=== PATIENT | male | born 1990 | race Caucasian/White ===

== ENCOUNTER 2017-12-11 17:35 | Emergency (ER) | payer MEDICAID ==
[2017-12-11] MEDS: ACETAMINOPHEN 325 MG TAB PO (19:56)
[2017-12-11] MEDS: IBUPROFEN 600 MG TAB PO (19:57)
== END 2017-12-11 20:39 | disposition home or self-care (01) ==
LOC: FTE 17:35
DX: S90.32XA Contusion of left foot, initial encounter (principal); W20.8XXA Other cause of strike by thrown, projected or falling object, initial encounter; Y92.9 Unspecified place or not applicable
CPT/HCPCS: 73610; 73630-LT; 99283-25